=== PATIENT | male | born 1985 | race Caucasian/White ===

== ENCOUNTER 2017-07-20 03:02 | Emergency (ER) | payer SELFPAY ==
[2017-07-20 04:48] VITALS: BP 179/115
== END 2017-07-20 04:48 | disposition home or self-care (01) ==
LOC: ED 03:02
DX: S02.2XXA Fracture of nasal bones, initial encounter for closed fracture (principal); S09.90XA Unspecified injury of head, initial encounter; X58.XXXA Exposure to other specified factors, initial encounter; Y93.89 Activity, other specified; Y99.8 Other external cause status; Y92.89 Other specified places as the place of occurrence of the external cause